=== PATIENT | male | born 1950 | race Caucasian/White ===

== ENCOUNTER 2016-12-21 19:21 | Emergency (ER) | payer OTHER, MEDICARE ==
[2016-12-21 19:31] VITALS: RESP 16
[2016-12-21] MEDS ORDERED: NS 1,000 ML IV ONE (19:35)
--- NOTE | 2016-12-21 19:43 | EDPHY ---
H & P Stated Complaint: Syncope HPI/ROS: CHIEF COMPLAINT: Syncopal episode HISTORY OF PRESENT ILLNESS: This patient is a 66 year old male with history of hypercholesterolemia and hypothyroid arriving with his and friends following a syncopal episode this evening at dinner. He is visiting from [place]. He was sitting down for dinner and fainted, falling backwards about 18 inches. He landed propped up against a screen when he fell and likely did not strike his head. He was aware that he was falling, and said "this is embarrassing" before landing on the floor. He woke quickly, and his and friends who witnessed the episode state he had no arm or leg movements. He has had three prior vasovagal episodes in the last 5 years, once with apparent brief seizure-like activity of his limbs. He has not been confused after these episodes.Nothing similar was noted this evening. Earlier today, he rode his bike a long way without water. He had one glass of alcohol and had consumed one 10mg marijuana edible. He denies chest pain, shortness of breath, abdominal pain, headache, weakness or numbness , or other associated symptoms. REVIEW OF SYSTEMS: A ten point review of systems was performed and is negative with the exception of the items mentioned in the HPI. Past medical history: 1. Hypercholesterolemia (Atorvastatin) 2. Hypothyroid Past surgical history: Denies Family history: Noncontributory Social history: Visiting from [place]. Professional musician (guitar and trumpet). and friends at bedside. General Appearance: Alert. Vital signs reviewed. Blood pressure 162/91. Eyes: Pupils equal and round, no conjunctival injection, no discharge. Anicteric. ENT, Mouth: Mucous membranes are moist, no oropharyngeal erythema or edema. Neck: No lymphadenopathy, supple. Respiratory: Lungs are clear to auscultation; no wheezes, rales, or rhonchi. Cardiovascular: Regular rate and rhythm; no murmur, rub, or gallop. Gastrointestinal: Abdomen is soft and nontender, no masses or organomegaly, bowel sounds normal. Skin: Warm and dry, no rashes on exposed skin, normal color. Back: Nontender to palpation over the thoracolumbar spine. No CVAT. Extremities: No lower extremity edema, no calf tenderness or swelling. Neurological: Alert and oriented. Moving all four extremities easily and equally. Cranial nerves II through XII are examined and are intact (visual acuity not tested). Strength is 5 over 5 bilaterally with testing of all major motor groups. Sensation is intact to light touch over all 4 extremities. Deep tendon reflexes are 2+ in the biceps and knees bilaterally. Gait is normal. [id number] is performed accurately. Psychiatric: Normal affect. - Personal History Current Tetanus/Diphtheria Vaccine: Yes Current Tetanus Diphtheria and Acellular Pertussis (TDAP): Yes - Medical/Surgical History Hx Asthma: No Hx Chronic Respiratory Disease: No Hx Diabetes: No Hx Cardiac Disease: No Hx Renal Disease: No Hx Cirrhosis: No Hx Alcoholism: No Hx HIV/AIDS: No Hx Splenectomy or Spleen Trauma: No Other PMH: syncopy, vasovagal - Social History Smoking Status: Never smoked Constitutional: Initial Vital Signs Temperature (C) 36.8 C 12/21/16 19:30 Heart Rate 79 12/21/16 19:30 Respiratory Rate 16 12/21/16 19:30 Blood Pressure 162/91 H 12/21/16 19:30 O2 Sat (%) 96 12/21/16 19:30 O2 Delivery Mode Room Air Allergies/Adverse Reactions: Sulfa (Sulfonamide Antibiotics) Allergy (Verified 12/21/16 19:34) Home Medications: Medication Instructions Recorded Atorvastatin Calcium 12/21/16 Synthroid 12/21/16 Medical Decision Making - Diagnostics EKG Interpretation: The 12 lead EKG was interpreted by myself. See hard copy and/or "tracemaster" electronic copy for interpretation. ED Course/Re-evaluation: 66 year old male presents following a syncopal episode this evening shortly prior to arrival. Physical exam is unremarkable. Plan for labs including CBC, BMP, Troponin, and D-dimer. Plan for EKG. The patient has history of vasovagal syncope and states this episode felt similar. I do not think that he had a seizure. He junderstands that his syncopal episodes could be related to a cardiac arrhythmia and I am recommending that he FU with a registered medical transcriptionist when he returns home. He endorses exercise without adequate hydration today as well as alcohol and marijuana use this evening. He is visiting from [place]. These are the likely antecedents of lisandro's syncopal episode (mild dehydration, not used to this altitude, marijuana, alcohol). He received one liter IV NS in ED. No arrhythmias noted on surveillance system monitor. Labs unremarkable. 20:56 Reassessed patient. Discussed lab results. Plan to discharge home in good condition. Follow up and return precautions discussed. The patient is comfortable with this plan. - Data Points Laboratory Results: Laboratory Results 12/21/16 19:44 12/21/16 19:44 Medications Given: Discontinued Medications Sodium Chloride (Ns) 1,000 mls @ 0 mls/hr IV ONCE ONE; Wide Open PRN Reason: Protocol Stop: 12/21/16 19:36 Last Admin: 12/21/16 19:46 Dose: 1,000 mls Departure - Departure Disposition: Home, Routine, Self-Care Clinical Impression: Vasovagal syncope Condition: Good Instructions: Syncope (ED) Additional Instructions: 1. Follow up with your primary care physician when you return home for further evaluation. We have referred you to a local primary care physician as well should you need to follow up sooner. 2. Be sure to stay well hydrated. 3. Return to the emergency department for repeat episodes of fainting or if you develop severe headache, chest pain, shortness of breath, vomiting, fever, or other worsening of condition. Referrals: Arlet Conteh MD [place] [place] - As per Instructions Report Scribed for: Angeli Christine Report Scribed by: Adrianna Castaneda Date of Report: 12/21/16 Time of Report: 20:51 Physician Review and Approval Statement: 12/21/16 19:43 Portions of this note were transcribed by the general medical practitioner. I, Dr. Angeli Christine, personally performed the history, physical exam, and medical decision- making; and confirmed the accuracy of the information in the transcribed note.
[2016-12-21 19:51] LABS: % IMMATURE GRANULYOCYTES 0.2 % (0.0-1.1); ABSOLUTE IMMATURE GRANULOCYTES 0.01 10^3/uL (0.00-0.10); ADD DIFF? NO; ADD MORPH? NO; ADD SCAN? NO; ATYPICAL LYMPHOCYTE FLAG 30 (0-99); FRAGMENT RBC FLAG 0 (0-99); HEMATOCRIT 37.8 % (40.0-51.0); HEMOGLOBIN 13.1 g/dL (13.7-17.5); LEFT SHIFT FLG 0 (0-99); LIPEMIA HEMOLYSIS FLAG 90 (0-99); MEAN CELL HEMOGLOBIN 31.7 pg (27.9-34.1); MEAN CELL HEMOGLOBIN CONCENTR. 34.7 g/dL (32.4-36.7); MEAN CELL VOLUME 91.5 fL (81.5-99.8); MEAN PLATELET VOLUME 9.2 fL (8.7-11.7); PLATELET CLUMPS FLAG 0 (0-99); PLATELET COUNT 171 10^3/uL (150-400); RED BLOOD CELL COUNT 4.13 10^6/uL (4.40-6.38)
[2016-12-21 20:10] LABS: ANION GAP 13 mEq/L (8-16); CALCIUM 9.2 mg/dL (8.5-10.4); CARBON DIOXIDE 24 mEq/l (22-31); CHLORIDE 102 mEq/L (97-110); GLOMERULAR FILTRATION RATE > 60; GLUCOSE 97 mg/dL (70-100); POTASSIUM 3.9 mEq/L (3.5-5.2); SODIUM 139 mEq/L (134-144)
[2016-12-21 20:23] LABS: TROPONIN I < 0.012 ng/mL (0.000-0.034)
[2016-12-21 21:17] VITALS: BP 154/86; PULSE 82; TEMP 97.9; O2SAT 96
--- NOTE | 2016-12-22 10:04 | CPEKG ---
Heart Rate: 78 RR Interval: 769 P-R Interval: 172 QRSD Interval: 104 QT Interval: 400 QTC Interval: 456 P [place]: 26 QRS [place]: -16 T Wave [place]: 41 EKG Severity - OTHERWISE NORMAL ECG - EKG Impression: SINUS RHYTHM EKG Impression: BORDERLINE LEFT AXIS DEVIATION Electronically Signed By: Angeli Christine 23-Dec-2016 17:20:06
== END 2016-12-21 21:16 | disposition home or self-care (01) ==
DX: R55 Syncope and collapse (principal); E86.9 Volume depletion, unspecified